=== PATIENT | male | born 1965 | race African-American/Black ===

== ENCOUNTER 2024-08-25 09:51 | Emergency (ER) | payer OTHER ==
[2024-08-25 10:33] LABS: #Basophils Less than 0.03 10x3/uL (0.0-0.2); %Basophils 0.3 % (0.0-1.0); %Eosinophils 1.7 % (0.0-10.0); %Lymphocytes 24.5 % (21.0-51.0); %Monocytes 10.7 % (0.0-10.0); %Neutrophils 62.6 % (42.0-75.0); Hemoglobin 7.4 g/dL (14.0-18.0); Mean Corpuscular HGB CONC 30.8 g/dL (32.0-36.0); Mean Corpuscular Hemoglobin 26.1 pg (27.0-31.0); Mean Corpuscular Volume 84.5 fL (78.0-98.0); Platelet Count 156 10x3/uL (130-400); RBC Distribution Width 18.6 % (11.5-14.5); Red Blood Cell (RBC) Count 2.84 mill/uL (4.70-6.10)
[2024-08-25 10:49] LABS: ALT (SGPT) 8 U/L (8-55); AST (SGOT) 18 U/L (5-34); Albumin 3.3 g/dL (3.5-5.0); Alkaline Phosphatase 117 U/L (40-110); Anion Gap 16 mmol/L (10-20); BUN (Urea Nitrogen) 28 mg/dL (8.4-25.7); Bilirubin, Total 1.3 mg/dL (0.2-1.2); Calc. Creatinine Clearance 0 mL/min (70-130); Calcium 9.3 mg/dL (7.8-10.44); Carbon Dioxide 27 mmol/L (22-29); Chloride 100 mmol/L (98-107); Estimated GFR 12; Globulin 4.5 g/dL (2.4-3.5); Glucose 145 mg/dL (70-105); Magnesium 2.1 mg/dL (1.6-2.6); Potassium 2.9 mmol/L (3.5-5.1); Protein, Total 7.8 g/dL (6.0-8.3); Sodium 140 mmol/L (136-145)
[2024-08-25] MEDS ORDERED: Potassium Chloride 20 MEQ TAB ONE (12:03)
[2024-08-25 15:55] LABS: Bacteria/HPF 4+ HPF (None Seen); Bilirubin Negative (Negative); Blood, Urine 2+ (Negative); CAUTI Indications for Culture Dysuria,urgency,freq; Clarity Extra Turbid (Clear); Glucose, Urine (Dipstick) Normal (Negative); Ketone, Urine Trace mg/dL (Negative); Leukocyte 500 Leu/uL (Negative); Nitrite Negative (Negative); Protein, Urine (Dipstick) 300 mg/dL (Neg-Trace); RBC/HPF 21-50 HPF (0-3); Specific Gravity, Urine 1.017 (1.002-1.036); Squamous Epithelial None Seen HPF (0-3); Urobilinogen 3 mg/dL (Less than 2); WBC/HPF Greater than 50 HPF (0-3); pH, Urine 6.5 (5.0-9.0)
[2024-08-25 16:00] LABS: Urine Culture Reflex Yes Yes
== END 2024-08-25 17:07 | disposition home or self-care (01) ==
LOC: ERS 09:51
DX: D63.1 Anemia in chronic kidney disease (principal); H61.22 Impacted cerumen, left ear; E87.6 Hypokalemia; N39.0 Urinary tract infection, site not specified; I13.0 Hypertensive heart and chronic kidney disease with heart failure and stage 1 through stage 4 chronic kidney disease, or unspecified chronic kidney disease; E11.22 Type 2 diabetes mellitus with diabetic chronic kidney disease; N18.9 Chronic kidney disease, unspecified; I50.9 Heart failure, unspecified; I48.91 Unspecified atrial fibrillation; Z99.2 Dependence on renal dialysis; Z79.899 Other long term (current) drug therapy
CPT/HCPCS: 36415; 36430; 69210; 80053; 81001; 83735; 85025; 86850; 86900; 86901; 87077; 87086; 87186; 99284; P9016

== ENCOUNTER 2025-06-21 11:29 | Outpatient (CLI) | payer OTHER ==
[2025-06-21 13:01] LABS: #Basophils Less than 0.03 10x3/uL (0.0-0.2); #Eosinophils 0.07 10x3/uL (0.0-0.7); #Monocytes 0.75 10x3/uL (0.11-0.59); #Neutrophils 3.43 10x3/uL (1.40-6.50); %Basophils 0.3 % (0.0-1.0); %Eosinophils 1.1 % (0.0-10.0); %Lymphocytes 30.9 % (21.0-51.0); %Monocytes 12.1 % (0.0-10.0); %Neutrophils 55.4 % (42.0-75.0); Hematocrit 41.6 % (42.0-52.0); Hemoglobin 12.8 g/dL (14.0-18.0); Mean Corpuscular Hemoglobin 27.1 pg (27.0-31.0); Mean Corpuscular Volume 88.1 fL (78.0-98.0); Platelet Count 132 10x3/uL (130-400); Red Blood Cell (RBC) Count 4.72 mill/uL (4.70-6.10); White Blood Cell (WBC) Count 6.19 10x3/uL (4.8-10.8)
[2025-06-21 13:23] LABS: INR-International Normal Ratio 1.0; PTT 34.3 sec (22.9-36.1); Prothrombin Time 13.5 sec (12.0-14.7)
[2025-06-21 13:28] LABS: Anion Gap 13 mmol/L (10-20); BUN (Urea Nitrogen) 31 mg/dL (8.4-25.7); Calc. Creatinine Clearance 0 mL/min (70-130); Calcium 9.2 mg/dL (7.8-10.44); Carbon Dioxide 30 mmol/L (22-29); Chloride 103 mmol/L (98-107); Glucose 164 mg/dL (70-105); Potassium 4.6 mmol/L (3.5-5.1); Sodium 141 mmol/L (136-145)
== END 2025-06-21 11:30 | disposition home or self-care (01) ==
LOC: LABBT 11:29
PROVIDERS: ATTEND Surgery
DX: Z01.818 Encounter for other preprocedural examination (principal); N18.6 End stage renal disease
CPT/HCPCS: 71046; 80048; 85025; 85610; 85730; 93005; 93010

== ENCOUNTER 2025-06-25 05:41 | Day surgery (SDC) | payer OTHER ==
[2025-06-21 11:56] VITALS: BMI 27.0
[2025-06-25] MEDS ORDERED: Heparin 10,000 UNITS/ 10 ML VIAL ONE ×2 (06:20→08:03)
[2025-06-25] MEDS ORDERED: Heparin 5,000 UNITS/ML VIAL ONE (06:20)
[2025-06-25] MEDS ORDERED: Bupivacaine 0.25% HCL 30 ML VIAL ONE (06:21)
[2025-06-25] MEDS ORDERED: PROPOFOL 60 ML ONE ×2 (06:56→07:47)
[2025-06-25] MEDS ORDERED: fentaNYL PF 100 MCG/2 ML SYRINGE ONE (06:57)
[2025-06-25] MEDS ORDERED: Ketamine In 0.9 % NaCl 50 MG/5 ML SYRINGE ONE (07:32)
[2025-06-25] MEDS ORDERED: Lidocaine 1% (PF) 30 ML VIAL ONE (07:44)
[2025-06-25] MEDS ORDERED: CEFAZOLIN 1 GM VIAL ONE ×2 (07:45)
[2025-06-25] MEDS ORDERED: PROPOFOL 20 ML ONE (08:55)
[2025-06-25] MEDS ORDERED: Ondansetron PF 4 MG/2 ML Vial ONE (09:09)
== END 2025-06-25 10:05 | disposition home or self-care (01) ==
LOC: SDC 05:41
PROVIDERS: ATTEND Surgery
PROC: 03180JD Bypass Left Brachial Artery to Upper Arm Vein with Synthetic Substitute, Open Approach (ICD-10-PCS; principal; 2025-06-25)
DX: I13.2 Hypertensive heart and chronic kidney disease with heart failure and with stage 5 chronic kidney disease, or end stage renal disease (principal); N18.6 End stage renal disease; I50.9 Heart failure, unspecified; E78.5 Hyperlipidemia, unspecified
CPT/HCPCS: 36416; A6258; J0169; J0665; J0690; J1642; J1644; J2003; J2250; J2405; J2704; J2720; J3010; J3373; J3490